=== PATIENT | male | born 1940 | race Two or more races ===

== ENCOUNTER → 2017-02-04 | Outpatient (CLI) | payer OTHER ==
--- NOTE | 2017-02-04 19:49 | HKNOTE ---
DATE OF SERVICE: 02/04/2017 CHIEF COMPLAINT: Bilateral knee pain. HISTORY OF PRESENT ILLNESS: Mr. Breen is a 76-year-old male complaining of 3-year history of bila teral knee pain. He has not had any previous treatment. The pain is intermittent. There is no rad iation. He denies any back or groin pain. He does not use any assistive devices. He does not use any braces. He denies any locking, catching or instability. He does not take any pain medications. He is prediabetic. GAIT: Nonantalgic gait, reciprocal gait pattern. RIGHT KNEE EXAM: Mild varus alignment. Tender over the medial joint line, 0-120 degrees range of m otion. Stable to varus and valgus stress. Negative Josefina. Negative anterior drawer. Negative p osterior drawer. Negative Laquita. LEFT KNEE EXAM: Mild varus alignment. Tender over the medial joint line, 0-120 degrees range of mo tion. Stable to varus and valgus stress. Negative Josefina. Negative anterior drawer. Negative po sterior drawer. Negative Laquita. MOTOR STRENGTH: 5/5, hamstrings, quadriceps, tibialis anterior, gastroc soleus bilaterally. X-RAYS, RIGHT KNEE: Three views of the right knee demonstrate tricompartmental degenerative changes with marginal osteophytes and subchondral sclerosis. X-RAYS, LEFT KNEE: Three views of the right knee demonstrate tricompartmental degenerative changes with marginal osteophytes and subchondral sclerosis. IMPRESSION: A 76-year-old man with bilateral knee osteoarthritis. PLAN: He was instructed on weight loss, low-impact aerobic exercises, and [id number] medicati ons. We will request authorization for bilateral knee viscosupplementation. He will follow up pend ing approval. Dictated By: ISELA LAWTON/TIM Conf#: [id number] DID#: [id number]
--- NOTE | 2017-02-05 13:16 | RADRPT ---
PROCEDURE: Bilateral knee series CLINICAL INDICATION: Pain TECHNIQUE: AP weightbearing, PA tunnel, lateral and sunrise views were obtained of the right and l eft knees. COMPARISON: None FINDINGS: There is severe degenerative joint disease of both knees worse involving the medial compartments belle aterally and worse on the right. There is minimal lateral subluxations of the right and left tibia s lightly worse on the right. No acute fractures dislocations or patellar subluxation. The bony minera lization is normal. No focal bony blastic or lytic lesions. No evidence of right or left knee joint effusion. Soft tissues are unremarkable. IMPRESSION: Severe degenerate joint disease of both knees with slight lateral subluxations of both proximal tibi as more so on the right without evidence of acute fractures, dislocations, patellar subluxation or j oint effusions. RPTAT:AAJJ Physician David Date Time Electronically viewed and signed by Physician David on 02/05/2017 13:16 /
== END | disposition home or self-care (01) ==
LOC: HKI 14:24
PROVIDERS: ATTEND Orthopaedic Surgery Adult Reconstructive Orthopaedic Surgery
DX: M17.0 Bilateral primary osteoarthritis of knee (principal)
CPT/HCPCS: 73564; Z7500; G0463

== ENCOUNTER → 2017-02-19 | Outpatient (CLI) | END | disposition home or self-care (01) ==